=== PATIENT | female | born 1950 | race Caucasian/White ===

== ENCOUNTER 2016-07-08 07:18 | Emergency (ER) | payer MEDICARE, BC ==
--- NOTE | 2016-07-08 07:57 | ERNOTE ---
Dyspnea - General Presenting Symptoms: shortness of breath Source: patient, family Exam Limitations: no limitations - Immun/Allergies/Home Medications Immunizations: IMMUNIZATION HX Immunizations Up to Date Yes History of Influenza Vaccine No Allergies/Adverse Reactions: Allergies ketorolac Allergy (Intermediate, Verified 07/08/16 07:41) Shortness of Breath quinapril HCl [From Accupril] Allergy (Unknown, Verified 07/08/16 07:41) caffeine Adverse Reaction (Intermediate, Verified 07/08/16 07:41) Other Tremors liquidine Allergy (Uncoded 07/08/16 07:41) Other Home Medications: HOME MEDICATIONS Diazepam [Valium] 5 mg PO TID 10/11/15 [Last Taken Unknown] Trazodone HCl [Oleptro ER] 100 mg PO HS 10/11/15 [Last Taken Unknown] Desvenlafaxine Succinate [Pristiq ER] 100 mg PO DAILY 05/18/16 [Last Taken Unknown] Hydrocodone/Acetaminophen [Lortab 5-325 mg Tablet] 1 - 2 each PO QID PRN #40 tablet 07/04/16 [Last Taken Unknown] - History of Present Illness Narrative: Pt fell and fractured her right elbow 5 days ago. She awoke today with shortness of breath. 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 Absent: fever Respiratory: Present: cough - "phlegm today" Cardiology: Absent: chest pain Musculoskeletal: Present: joint pain - right elbow - Patient's Past Medical History Patient History - Medical: Anxiety, Depression, GERD Patient History - Cancer: Breast, Chemotherapy history, Surgical Treatment Patient History - Surgical Procedures: Cataracts, Colonoscopy, Hysterectomy, Other - Family History Sister Family History - Medical: , Other Family History - Cardiac/Respiratory: No pertinent hx Brother Family History - Medical: No pertinent hx Family History - Cardiac/Respiratory: Other Father Family History - Medical: , No pertinent hx Family History - Cardiac/Respiratory: No pertinent hx Mother Family History - Medical: Other Family History - Cardiac/Respiratory: No pertinent hx mom Family History - Medical: Anxiety, Depression fath Family History - Medical: Family History - Cardiac/Respiratory: Myocardial Infarction - Social History Living Situations: home Alcohol Use: none Drug Use: none Physical Exam - Physical Exam General Appearance: Present: wd/wn, alert, mild distress Ears, Nose, Throat: Present: normal ENT inspection Neck: Present: normal inspection, nontender Respiratory: Present: no respiratory distress, normal breath sounds, no accessory muscle use, lungs clear Cardiovascular/Chest: Present: regular rate, rhythm, no murmur Extremity Exam: Present: other - right upper extremity in cast post fracture dislocation right elbow Neurological Exam: Present: alert, oriented, no motor/sensory deficits Skin Exam: Present: other - bruising on forehead from recent fall. ED Progress - Vital Signs Vital Signs: Vital Signs 07/08/16 07/08/16 07:26 07:42 Temperature 37.3 C Pulse Rate 83 82 Respiratory 24 H 17 Rate Blood Pressure 156/65 160/58 O2 Sat by Pulse 98 97 Oximetry - Progress/Reassessment Chief Complaint: Dyspnea - Transfer of Care Physician Sign Out: Quentin Berrios Receiving Physician: Kassie Washington Pending Results: Labs, X-ray results Expected Disposition: Discharge Departure Clinical Impression: Dyspnea - Departure Referrals: Tereza Joyce MD [Primary Care Provider] -
[2016-07-08 08:05] LABS: Hematocrit 35.5 % (37.0-47.0); Mean Cell Volume 85.1 fl (78-100); Mean Corpuscular Hemoglobin 28.8 pg (27-31); Mean Corpuscular Hgb Conc 33.8 g/dl (32-36); Mean Platelet Volume 9.1 fl (6.0-9.5); Neutrophil # 6.7 K/mm3 (1.3-6.0); Neutrophil % 77.5 % (42-75.0); Platelet Count 330 K/mm3 (150-450); Red Blood Count 4.17 M/mm3 (4.2-5.4); Red Cell Distribution Width 13.2 % (11.5-14.0); White Blood Count 8.7 K/mm3 (4.0-10.5)
[2016-07-08 08:08] LABS: Urine Bilirubin Negative (NEGATIVE); Urine Blood Negative /ul (NEGATIVE); Urine Ketone Negative (NEGATIVE); Urine Nitrite Negative (NEGATIVE); Urine Protein Negative (NEGATIVE); Urine Urobilinogen Normal (NORMAL)
[2016-07-08 08:20] LABS: Urine Appearance Clear; Urine Color Yellow
[2016-07-08 08:21] LABS: Urine Bacteria TRACE; Urine RBC None Seen /hpf (0-5); Urine Yeast Few - 1+
--- NOTE | 2016-07-08 08:26 | ERNOTE ---
Dyspnea - Date Date of Service: 07/08/16 - General Presenting Symptoms: shortness of breath Time Seen by Provider: 07/08/16 07:52 Source: patient - Immun/Allergies/Home Medications Immunizations: IMMUNIZATION HX Immunizations Up to Date Yes History of Influenza Vaccine No Allergies/Adverse Reactions: Allergies ketorolac Allergy (Intermediate, Verified 07/08/16 07:41) Shortness of Breath quinapril HCl [From Accupril] Allergy (Unknown, Verified 07/08/16 07:41) caffeine Adverse Reaction (Intermediate, Verified 07/08/16 07:41) Other Tremors liquidine Allergy (Uncoded 07/08/16 07:41) Other Home Medications: HOME MEDICATIONS Diazepam [Valium] 5 mg PO TID 10/11/15 [Last Taken Unknown] Trazodone HCl [Oleptro ER] 100 mg PO HS 10/11/15 [Last Taken Unknown] Desvenlafaxine Succinate [Pristiq ER] 100 mg PO DAILY 05/18/16 [Last Taken Unknown] Hydrocodone/Acetaminophen [Lortab 5-325 mg Tablet] 1 - 2 each PO QID PRN #40 tablet 07/04/16 [Last Taken Unknown] Sulfamethoxazole/Trimethoprim [Bactrim Ds] 1 tab PO BID #10 tablet 07/08/16 [ Last Taken Unknown] - History of Present Illness Severity: mild Initiating event: Reports: upper resp illness Frequency of episodes: Reports: no prior episodes Modifying Factors (Worsens): Reports: activity Associated Symptoms-Dyspnea: Reports: cough. Denies: fever/chills, sweating, chest pain/discomfort Prior Treatment: Reports: recently seen, treated by physician - Pt is s/p R elbow fracture and is scheduled for surgery in 6 days Review of Systems - Review of Systems EYE: Present: no symptoms reported ENT: Present: no symptoms reported Respiratory: Present: See HPI, shortness of breath, cough Cardiology: Present: no symptoms reported Gastrointestinal/Abdominal: Present: no symptoms reported Genitourinary: Present: no symptoms reported Musculoskeletal: Present: no symptoms reported Skin: Present: no symptoms reported Neurological: Present: no symptoms reported Endocrine: Present: no symptoms reported Hematologic/Lymphatic: Present: no symptoms reported Psych: Present: anxiety - Patient's Past Medical History Patient History - Medical: Anxiety, Depression, GERD Patient History - Cancer: Breast, Chemotherapy history, Surgical Treatment Patient History - Surgical Procedures: Cataracts, Colonoscopy, Hysterectomy, Other - Family History Sister Family History - Medical: , Other Family History - Cardiac/Respiratory: No pertinent hx Brother Family History - Medical: No pertinent hx Family History - Cardiac/Respiratory: Other Father Family History - Medical: , No pertinent hx Family History - Cardiac/Respiratory: No pertinent hx Mother Family History - Medical: Other Family History - Cardiac/Respiratory: No pertinent hx mom Family History - Medical: Anxiety, Depression fath Family History - Medical: Family History - Cardiac/Respiratory: Myocardial Infarction - Social History Living Situations: home Alcohol Use: none Drug Use: none Physical Exam - Physical Exam General Appearance: Present: alert Eye Exam: Normal inspection: bilateral - brusing on R face sec to fall Ears, Nose, Throat: Present: normal ENT inspection Neck: Present: normal inspection Respiratory: Present: no respiratory distress, normal breath sounds, chest tenderness - posterior L scapula. pt sts that this is chronic Cardiovascular/Chest: Present: regular rate, rhythm Gastrointestinal/Abdominal: Present: normal bowel sounds Rectal Exam: Present: deferred Back Exam: Present: normal inspection Extremity Exam: Present: other - R arm is in sling Neurological Exam: Present: alert, oriented Skin Exam: Present: normal color - except for bruises Lymphatic Exam: Present: no adenopathy Pelvic Exam: Present: active bleeding ED Progress - Vital Signs Vital Signs: Vital Signs 07/08/16 07/08/16 07/08/16 07:26 07:42 08:00 Temperature 37.3 C Pulse Rate 83 82 76 Respiratory 24 H 17 13 Rate Blood Pressure 156/65 160/58 156/59 O2 Sat by Pulse 98 97 97 Oximetry - Progress/Reassessment Chief Complaint: Dyspnea Departure Clinical Impression: Dyspnea, UTI (urinary tract infection), Anxiety - Departure Disposition: Home self-care Condition: Good Referrals: Tereza Joyce MD [Primary Care Provider] - Prescriptions: Sulfamethoxazole/Trimethoprim [Bactrim Ds] 1 tab PO BID #10 tablet
[2016-07-08 09:27] VITALS: BP 160/61
== END 2016-07-08 09:28 | disposition home or self-care (01) ==
LOC: ER 07:18
DX: N39.0 Urinary tract infection, site not specified (principal); R06.00 Dyspnea, unspecified; F41.9 Anxiety disorder, unspecified

== ENCOUNTER 2016-10-23 11:53 | Emergency (ER) | payer MEDICARE, BC ==
[2016-10-23 12:57] VITALS: BP 138/69
[2016-10-23] MEDS ORDERED: HYDROcodone/ACETAMINOPHEN 1 EACH TABLET PO ONE (13:07)
--- OUTSIDE RECORDS SUMMARY | 2016-10-23 13:16 | XMS REPORT | Continuity of Care Document ---
:1950 Author Organization [facility] ([facility]) Address [address] [place] [address] Phone [phone] Care Team Providers Name Role Phone Provider, No-Primary Care Primary Care Provider Unavailable Source Comments This disclosure is being made pursuant to the Care Everywhere program, applicable federal and state laws, and may not contain all informaitonavailable regarding this patient.[facility] ([facility]) Active Allergies and Adverse Reactions Allergen Noted Date Severity Reactions Comments Ketorolac Tromethamine 02/05/2012 Unknown Lidocaine 02/05/2012 Unknown Patient reports no problem with lidocaine. "It was something in the lidocaine"; pt has had lidocaine without any problems Oxycodone-Acetaminophen 08/14/2016 OTHER Had heart problems and stopped breathing Current Medications Prescription Sig. Disp. Refills Start Date End Date Status desvenlafaxine Take 100 mg Active (PRISTIQ) 100 mg XR by mouth tablet daily. diazepam 5 mg tablet Take 5 mg by Active mouth every 4 hours. traZODone 150 mg Take 150 mg 3 07/06/2016 Active tablet by mouth at bedtime. hydrOXYzine pamoate Take 1-2 60 capsule 1 07/16/2016 Active 25 mg capsule capsules (25-50 mg total) by mouth every 4 hours as needed for muscle spasms. phenazopyridine 100 TAKE ONE 0 07/20/2016 Active mg tablet TABLET BY MOUTH THREE TIMES DAILY NEEDED FOR BLADDER SPASM HYDROcodone-acetamin Take 1 tablet 40 tablet 0 09/10/2016 Active ophen 5-325 mg per by mouth 2 tablet times daily as needed for Pain. docusate 100 mg Take 1 100 capsule 0 07/16/2016 Discontinued capsule capsule (100 7 mg total) by mouth 2 times daily as needed for Constipation. ciprofloxacin HCl Take 500 mg 0 07/20/2016 Discontinued 500 mg tablet by mouth 7 every 12 hours. oxyCODONE-acetaminop Take 1-2 40 tablet 0 07/29/2016 Discontinued hen 5-325 mg per tablets by 7 tablet mouth every 4 hours as needed (When Able to Take Oral Medications). Active Problems Problem Noted Date Surgical aftercare, musculoskeletal system 09/29/2016 Elbow dislocation 07/15/2016 Cataract, nuclear sclerotic, both eyes 05/05/2013 Pseudophakia 04/21/2013 Most Recent Encounters Date Type Specialty Providers Description 10/23/2016 Telephone Reynaldo Patel MD 10/16/2016 Office Visit Reynaldo Patel, Chief Comp: Patient MD Reported Reason For Visit 09/30/2016 Telephone Reynaldo Patel, Chief Comp: Other 09/29/2016 Hospital Encounter Radiology Reynaldo Tobar, Dx: After care Mynor Mann MD 09/29/2016 Office Visit Reynaldo Patel, Dx: After care (Primary Dx) 09/28/2016 Telephone Reynaldo Patel, Chief Comp: Patient Concern 09/14/2016 Telephone Reynaldo Patel MD 09/11/2016 Telephone Patient Services Maggie Dozier, Chief Comp: Orders RN (to arrange test locally) 09/10/2016 Refill Reynaldo Patel, Chief Comp: Request MD for Prescription 08/28/2016 Hospital Encounter Rehabilitation Therapist, Rehab Dx: Elbow pain 08/28/2016 Hospital Encounter Radiology Mynor Marinelli Dx: Elbow pain MD Donnell 08/28/2016 Hospital Encounter Radiology Mynor Marinelli Dx: Elbow carie Jacobo MD 08/28/2016 Office Visit Reynaldo Patel Dx: Elbow pain (Primary Dx) 08/27/2016 Telephone Reynaldo Patel, Chief Comp: Patient Concern 08/14/2016 Orders/Notes Orthopaedic Alyssia Cruz Dx: Pain of right L, PA-C upper extremity (Primary Dx) 08/14/2016 Telephone Reynaldo Patel, Chief Comp: Medications Refill 07/29/2016 Hospital Encounter Radiology Reynaldo Tobar, Dx: Post- operative MD state 07/29/2016 Office Visit Orthopaedic Reynaldo Tobar, Dx: Post-operative MD state (Primary Dx) Social History Tobacco Use Types Packs/Day Years Used Date Never Smoker Smokeless Tobacco: Never Used Tobacco Cessation:Counseling Given: Yes Comments: Last Filed Vital Signs Vital Sign Reading Time Taken Blood Pressure 113/69 07/16/2016 4:00 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 Pulse 76 07/16/2016 4:00 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 Temperature 37.4 C (99.3 F) 07/16/2016 4:00 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 Respiratory Rate 16 07/16/2016 5:22 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 Height 1.549 m (5' 1") 07/15/2016 4:19 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 Weight 99.791 kg (220 lb) 07/15/2016 4:19 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 Body Mass Index 41.59 07/15/2016 4:19 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 Oxygen Saturation 95% 07/16/2016 4:00 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 Plan of Care Date Type Specialty Providers Description 11/10/2016 Appointment Orthopaedic Reynaldo Tobar MD Chief Comp: Patient [address] [place] [address] [phone] (Fax) Health Maintenance Due Date Last Done Comments HCV Screening 1950 Hepatitis B Vaccine (1 of 3 - Primary 1950 Series) Tdap Vaccine 1961 Lipid Disorder Screening 02/13/1968 Td Vaccine 02/13/1968 Colonoscopy 2000 Zoster Vaccine 2010 Mammogram 10/14/2012 10/15/2011, 04/23/2011, 10/16/2010 Osteoporosis Screening (DXA Bone 2015 Density) Pneumococcal Vaccine (1 of 2 - PCV13) 2015 Influenza Vaccine: Seasonal (Season 02/02/2017 Ended) Results from Last 3 Months RIGHT ELBOW AP& LAT (09/29/2016 12:44 PM)Only the most recent of4 resultswithin the time period is included. Impressions Findings/impression: Interval removal of external fixation pins of the ulna and the more distal humerus. The more proximal humerus pin is not included in the field of study. Radial head prosthesis is in stable position without complication. Stable alignment of the elbow joint. Interval increase in small amount of heterotopic ossification surrounding the radial head prosthesis. Narrative Procedure:RIGHT ELBOW AP & LAT Clinical Indication: Right elbow follow-up, follow-up right elbow dislocation Study note "Patient unable to supinate hand to get thumb up due to increase tremor and decrease ROM." Comparison:08/28/2016 right elbow radiographs Procedure Note Romaine, Incoming Imaging Results - Wed Sep 30, 2016 9:24 AM CDT Procedure: RIGHT ELBOW AP & LAT Clinical Indication: Right elbow follow-up, follow-up right elbow dislocation Study note "Patient unable to supinate hand to get thumb up due to increase tremor and decrease ROM." Comparison: 08/28/2016 right elbow radiographs IMPRESSION Findings/impression: Interval removal of external fixation pins of the ulna and the more distal humerus. The more proximal humerus pin is not included in the field of study. Radial head prosthesis is in stable position without complication. Stable alignment of the elbow joint. Interval increase in small amount of heterotopic ossification surrounding the radial head prosthesis.
[2016-10-23] MEDS ORDERED: HYDROcodone/ACETAMINOPHEN 1 EACH TABLET ONE (13:22)
--- NOTE | 2016-10-23 13:27 | ERNOTE ---
Upper Extremity HPI - Narrative Date of Service: 10/23/16 - General Extremities Pain Location: shoulder: right Time Seen by Provider: 10/23/16 12:53 Source: patient, family, RN notes reviewed Exam Limitations: no limitations - Immun/Allergies/Home Medications Immunizations: IMMUNIZATION HX Immunizations Up to Date Yes History of Influenza Vaccine No Allergies/Adverse Reactions: Allergies Allergy/AdvReac Type Severity Reaction Status Date / Time ketorolac Allergy Intermediate Shortness Verified 10/23/16 12:14 of Breath quinapril HCl [From Accupril] Allergy Unknown Verified 10/23/16 12:14 caffeine AdvReac Intermediate TREMORS Verified 10/23/16 12:14 liquidine Allergy Unknown Other Uncoded 10/23/16 12:14 Home Medications: HOME MEDICATIONS Diazepam [Valium] 5 mg PO QID PRN 10/11/15 [Last Taken Unknown] traZODone HCL [Oleptro ER] 150 mg PO HS 10/11/15 [Last Taken Unknown] Desvenlafaxine Succinate [Pristiq ER] 100 mg PO DAILY 05/18/16 [Last Taken Unknown] HYDROcodone/ACETAMINOPHEN [[place] 5-325] 1 tab PO Q6H PRN #20 tab 10/23/16 [Last Taken Unknown] - History of Present Illness Narrative: 66 y/o female ambulatory to the ED for right shoulder pain. She fell against her bed yesterday and felt a "pop" in her right anterior shoulder. She fell down the stairs 4 months ago and broke the right elbow. She underwent a radial head replacement and has still been doing PT. She reports having pain in the same area in the shoulder a few weeks ago when trying to reach behind her during therapy. She took [place] for pain at 0900. Date (Duration): 10/22/16 Occurred: yesterday Location of Incident: home Severity: mild Loss of Consciousness: Reports: no loss of consciousness Associated Symptoms: Reports: tingling. Denies: numbness distally, loss of power (rt arm) Other Injuries: Reports: none Review of Systems - Review of Systems Constitutional: Absent: recent illness, fever EYE: Present: no symptoms reported ENT: Present: no symptoms reported Respiratory: Present: no symptoms reported Cardiology: Absent: chest pain, palpitations, syncope Gastrointestinal/Abdominal: Absent: nausea, vomiting, abdominal pain Genitourinary: Present: no symptoms reported Musculoskeletal: Present: no symptoms reported, joint pain. Absent: joint swelling Skin: Absent: lesions, lumps Neurological: Absent: headache, dizziness/light-headedness Endocrine: Present: no symptoms reported Hematologic/Lymphatic: Present: no symptoms reported Psych: Present: no symptoms reported - Patient's Past Medical History Patient History - Medical: Anxiety, Depression, GERD Patient History - Cardiac/Respiratory: Sleep Apnea Patient History - Cancer: Breast, Chemotherapy history, Surgical Treatment Patient History - Surgical Procedures: Cataracts, Colonoscopy, Hysterectomy, Other, Orthopedic Patient History - Other: None - Family History Sister Family History - Medical: , Other Family History - Cardiac/Respiratory: No pertinent hx Brother Family History - Medical: No pertinent hx Family History - Cardiac/Respiratory: Other Father Family History - Medical: , No pertinent hx Family History - Cardiac/Respiratory: No pertinent hx Mother Family History - Medical: Other Family History - Cardiac/Respiratory: No pertinent hx mom Family History - Medical: Anxiety, Depression fath Family History - Medical: Family History - Cardiac/Respiratory: Myocardial Infarction - Social History Living Situations: spouse Abuse History: No History of abuse Psych History: Hx of Anxiety, Hx of Depression, Hx of Bipolar Disorder Smoking Status: Never smoker Alcohol Use: none Drug Use: none - Immunizations Immunizations Up to Date: Yes History of Influenza Vaccine: No Physical Exam - Physical Exam General Appearance: Present: wd/wn, alert, no apparent distress Respiratory: Present: no respiratory distress, no accessory muscle use Cardiovascular/Chest: Present: normal peripheral pulses Extremity Exam: Present: no edema, decreased range of motion - Right shoulder and elbow - chronic since 06/19 injury, other - tenderness with palpation of anterior right shoulder - no deformity or ecchymosis. Absent: joint swelling Neurological Exam: Present: alert, oriented, normal mood/affect, other - tremor - chronic Skin Exam: Present: normal color, warm/dry ED Progress - Vital Signs Patient's Vital Signs:: I have reviewed the patient's vital signs. Vital Signs: Vital Signs 10/23/16 10/23/16 10/23/16 12:07 12:23 12:55 Temperature 36.9 C 36.8 C Pulse Rate 87 82 Respiratory 16 16 14 Rate Blood Pressure 132/93 138/69 O2 Sat by Pulse 96 94 93 Oximetry - X-Ray X-Ray #1 X-Ray: shoulder Interpretation: Reviewed by me X-ray Comments: No acute osseous abnormality - Progress/Reassessment Chief Complaint: Shoulder Injury/Pain Progress:: Unchanged Departure Clinical Impression: Shoulder pain, right Qualifiers: Chronicity: unspecified Qualified Code(s): M25.511 - Pain in right shoulder - Departure Disposition: Home Follow Up Needed Condition: Stable Instructions: Shoulder Pain, [id number] Additional Instructions: Contact orthopedics - either here or at the [facility] for follow-up Referrals: Tereza Joyce MD [Primary Care Provider] - Prescriptions: HYDROcodone/ACETAMINOPHEN [[place] 5-325] 1 tab PO Q6H PRN #20 tab PRN Reason: Pain
== END 2016-10-23 13:33 | disposition home or self-care (01) ==
LOC: ER 11:53
DX: M25.511 Pain in right shoulder (principal); W19.XXXA Unspecified fall, initial encounter